=== PATIENT | male | born 1955 | race Caucasian/White ===

== ENCOUNTER 2024-10-07 15:13 | Inpatient (IN) ==
--- NOTE | 2024-10-07 15:22 | ED Triage Note ---
Date of Service October 07, 2024 Provider in Triage Author: Catrachito Cardozo History of Present Illness This patient was briefly evaluated while in triage. An abbreviated physical exam was performed. This patient is a 69-year-old Male who presents to the ED for evaluation coming from [facility]-had colonoscopy earlier today became hypoxic after procedure - given nebulizers, decadron, metoprolol sats down to 86% had COVID at the end of August feeling better, still mildly SOB, having cough and "frog in his throat" Physical Exam GENERAL: NAD, tachycardic in 120s, sat 91% on RA CARDIOVASCULAR: RRR RESPIRATORY: BS diminished and crackles at the left base ABDOMEN: BS x 4. Nontender to palpation. Initial orders for labs and / or imaging were placed and patient was placed in the waiting area until a bed is available. Please see further documentation for the full ED course. MDM / Impression Impression Impression: Sepsis, LLL pneumonia, Elevated lactic acid level
[2024-10-07 16:07] LABS: Hematocrit (blood only) 41.3 % (42.0-52.0); Hemoglobin 14.1 g/dl (14.0-18.0); Mean Corpuscular Hemoglobin 31.2 pg (25.0-34.0); Mean Corpuscular Hgb Conc 34.1 g/dL (32.0-36.0); Mean Corpuscular Volume 91.4 fL (80.0-100.0); Mean Platelet Volume 8.8 fL (9.4-12.4); Platelet Count 302 K/uL (130-400); RDW Coefficient of Variation 12.8 % (11.5-14.5); RDW Standard Deviation 42.2 fL (36.4-46.3); Red Blood Count 4.52 M/uL (4.70-6.10); White Blood Count 14.29 K/ul (4.8-10.8)
[2024-10-07 16:18] LABS: Albumin Globulin Ratio 1.2 (0.9-2); Albumin Level 4.2 gm/dl (3.4-5.0); BUN Creatinine Ratio 9.6 (10-20); Bilirubin,Total 0.8 mg/dl (0.2-1.0); Calcium 9.1 mg/dl (8.6-10.3); Creatinine Clr Calc Pharmacy 83.1 ml/min; Globulin 3.4 gm/dl (2.5-4.0); Potassium 4.1 mmol/L (3.5-5.1); Total Protein 7.6 gm/dl (6.0-8.3)
[2024-10-07 16:24] LABS: Troponin I High Sensitivity 7.2 pg/ml (0-20)
[2024-10-07 16:32] LABS: Basophils # (auto) 0.03 K/uL (0.00-0.20); Basophils % (auto) 0.2 %; Immature Granulocytes # (auto) 0.05 K/uL (0.01-0.20); Immature Granulocytes % (auto) 0.3 %; Lymphocytes # (auto) 0.47 K/uL (1.20-3.40); Lymphocytes % (auto) 3.3 %; Monocytes # (auto) 0.46 K/uL (0.11-0.59); Monocytes % (auto) 3.2 %; Neutrophils # (auto) 13.28 K/uL (1.40-6.50)
--- NOTE | 2024-10-07 16:42 | Emergency Department Note ---
Impression & Plan Sepsis, LLL pneumonia, Elevated lactic acid level ED Provider Note HISTORY OF PRESENT ILLNESS: Patient is a 69-year-old male presenting with hypoxia. Patient reports that today he had some nasal congestion but was scheduled for colonoscopy. He reportedly became hypoxic during the procedure and was given Solu-Medrol and DuoNeb by anesthesia but had little improvement in his saturations. Saturations were reportedly in the 80s to low 90s. He was referred to the emergency department for further evaluation. Patient reports he tested positive for COVID on 09/16/2024. He reports he completed a course of Paxlovid. He states that he been doing well and had been on a walk this weekend. He woke up and just had some nasal congestion today. No significant cough. Denies any recent antibiotic or steroid use. Denies any recent fevers. ROS: as above PHYSICAL EXAM: Constitutional: Patient appears in no acute distress. HENT: Head: Normocephalic and atraumatic. Eyes: EOMI, PERRL Mouth/Throat: Mucous membranes moist. Neck: Trachea midline. Neck supple. Cardiovascular: Tachycardic with regular rhythm. No murmurs, rubs or gallops. Intact distal pulses. Pulmonary/Chest: No respiratory distress. Breath sounds clear and equal bilaterally. No wheezes or rales. No chest wall tenderness to palpation. Abdominal: Abdomen soft, no tenderness, rebound or guarding. Musculoskeletal: No edema, tenderness or deformity noted. Skin: Warm and dry. No rash, erythema, pallor or cyanosis Psychiatric: Appropriate mood and affect for situation. Neurological: Alert and keenly responsive. CN II-XII grossly intact, moving all extremities equally and fully. MDM: - Vitals signs showed hypertension and tachycardia - History obtained via patient. History as above. - Chronic conditions affecting care: HTN; HLD - Differential diagnoses include, but are not limited to: Congestive heart failure; acute coronary syndrome; COPD/asthma exacerbation; pulmonary edema; pulmonary embolism; pneumonia; pneumothorax; viral syndrome - Order placed for continuous cardiac monitoring. At this time, monitor showed rate of 126 bpm with normal sinus rhythm, per my interpretation. - External medical records reviewed. Colonoscopy preprocedure note dated 10/07/2024 was reviewed. Patient was afebrile and had a heart rate of 100 prior to undergoing his colonoscopy. Blood pressure was stable at 139/94. - EKG interpreted by myself showed normal sinus rhythm. Rate tachycardic at 123 bpm. QT 308. No acute ischemic changes. - Laboratory workup interpreted by myself showed leukocytosis (WBC 14.29) with neutrophil predominance; stable electrolytes; elevated lactate (4.0); normal troponin; normal procalcitonin - CXR shows left lower lobe pneumonia, per my interpretation - Given patient's tachycardia, tachypnea, leukocytosis and source of infection, he meets sepsis criteria. - Patient given IV unasyn. Given 500 cc NS for hydration given sepsis. More fluids not ordered due to national shortage. - CT PE negative for PE. Noted to have patchy groundglass opacities in the left lung concerning for pneumonia or inflammatory changes. - Viral respiratory panel negative - Discussion was had with case management director about patient's case and need for admission - Hospitalist consulted for admission - [facility] ASSESSMENT AND PLAN: Diagnosis: pneumonia; sepsis; leukocytosis; elevated lactic acid level Plan: admit Past Med/Surg History Problem List (Updated 10/07/24 @ 18:41 by Gabriela Hull MD) Elevated lactic acid level (Acute) LLL pneumonia (Acute) Sepsis (Acute) LLL pneumonia Sepsis Medical History (Updated 10/07/24 @ 18:41 by Gabriela Hull MD) Diastolic dysfunction DM (diabetes mellitus), type 2 Dyslipidemia Chronic rhinitis Hypertension Tobacco use disorder History of adenomatous polyp of colon Diverticular disease of colon Chronic low back pain Surgical History H/O colonoscopy "01/20/2014- Bx- Diverticulosis, Bx's- Colonic mucosa with hyperplastic change, Hyperplastic polyp" S/P wisdom tooth extraction History of cholecystectomy (Unknown) Family History Other Gastric cancer Heart disease Social History (Updated 10/07/24 @ 18:30 by Nia Guerra PA-C) Smoking Status: Former smoker Tobacco Type: Cigarettes Cigarettes Per Day: 2014; 20 pack years; Smoking End Date: 2014; 20 pack years; Hx Alcohol Use: Yes Preferred Language: Belarusian Feels Safe at Home: Yes Allergies Allergies Allergy/AdvReac Type Severity Reaction Status Date / Time ciprofloxacin AdvReac Muscle Pain Verified 10/07/24 17:05 Home Meds Home Medications Medication Instructions Recorded Confirmed aspirin 81 mg capsule 81 mg PO DAILY 10/07/24 10/07/24 famotidine 20 mg tablet 20 mg PO HS PRN Heartburn 10/07/24 10/07/24 geriatric multivitamin-min 1 tab PO DAILY 10/07/24 10/07/24 metformin 500 mg tablet,extended 500 mg PO BID 10/07/24 10/07/24 release 24 hr metoprolol succinate 50 mg 50 mg PO QAM 10/07/24 10/07/24 tablet,extended release 24 hr rosuvastatin 10 mg tablet 10 mg PO DAILY 10/07/24 10/07/24 Results & Data (ED) Vital Signs Vital Signs - 24 hr 10/07/24 15:20 10/07/24 16:39 10/07/24 17:03 Temperature 36.7 C Temperature Source Temporal Artery Scan Pulse Rate 120 H 126 H Pulse Rate [Finger] 126 H Pulse Rhythm Regular Pulse Strength Normal Respiratory Rate 20 22 Respiratory Effort / Characteristics Non-Labored Spontaneous Respiratory Depth Normal Blood Pressure 150/95 H Blood Pressure [Right Arm] 154/98 H Blood Pressure Mean 113 Blood Pressure Mean [Right Arm] 116 Blood Pressure Position Sitting Pulse Oximetry 91 94 Oxygen Delivery Method Room Air Room Air Sepsis Recent Fever Within 48 Hours No Sepsis New/Unexplained Change in Mental Status N/A Sepsis Action Taken by Nursing No Action Required 10/07/24 18:30 Temperature Temperature Source Pulse Rate Pulse Rate [Finger] 119 H Pulse Rhythm Pulse Strength Respiratory Rate 22 Respiratory Effort / Characteristics Respiratory Depth Blood Pressure Blood Pressure [Right Arm] 137/95 Blood Pressure Mean Blood Pressure Mean [Right Arm] 109 Blood Pressure Position Pulse Oximetry 93 Oxygen Delivery Method Room Air Sepsis Recent Fever Within 48 Hours Sepsis New/Unexplained Change in Mental Status Sepsis Action Taken by Nursing Laboratory Data 10/07/24 15:46 10/07/24 15:46 Lab Results 10/07/24 10/07/24 10/07/24 Range/Units 15:46 17:07 17:26 WBC 14.29 H (4.8-10.8) K/ul RBC 4.52 L (4.70-6.10) M/uL Hgb 14.1 (14.0-18.0) g/dl Hct 41.3 L (42.0-52.0) % MCV 91.4 (80.0-100.0) fL MCH 31.2 (25.0-34.0) pg MCHC 34.1 (32.0-36.0) g/dL RDW Std Deviation 42.2 (36.4-46.3) fL RDW Coeff of August 12.8 (11.5-14.5) % Plt Count 302 (130-400) K/uL MPV 8.8 L (9.4-12.4) fL Immature Gran % (Auto) 0.3 % Neut % (Auto) 93.0 % Lymph % (Auto) 3.3 % Smith % (Auto) 3.2 % Eos % (Auto) 0.0 % Baso % (Auto) 0.2 % Neut # (Auto) 13.28 H (1.40-6.50) K/uL Lymph # (Auto) 0.47 L (1.20-3.40) K/uL Smith # (Auto) 0.46 (0.11-0.59) K/uL Eos # (Auto) 0.00 (0.00-0.50) K/uL Baso # (Auto) 0.03 (0.00-0.20) K/uL Immature Gran # (Auto) 0.05 (0.01-0.20) K/uL Sodium 135 L (136-145) mmol/L Potassium 4.1 (3.5-5.1) mmol/L Chloride 101 (98-107) mmol/L Carbon Dioxide 23 (21-32) mmol/L Anion Gap 11 (3-11) BUN 9 (6-23) mg/dl Creatinine 0.94 (0.6-1.4) mg/dl Est Cr Clr Drug Dosing 83.1 ml/min eGFR 88.30 BUN/Creatinine Ratio 9.6 L (10-20) Glucose 170 H (70-99(Fasting)) mg/dl Lactate 4.0 H* (0.4-2.0) mmol/L Calcium 9.1 (8.6-10.3) mg/dl Total Bilirubin 0.8 (0.2-1.0) mg/dl AST 26 (13-39) U/L ALT 22 (7-52) U/L Alkaline Phosphatase 58 (34-104) U/L Troponin I High Sens 7.2 (0-20) pg/ml Total Protein 7.6 (6.0-8.3) gm/dl Albumin 4.2 (3.4-5.0) gm/dl Globulin 3.4 (2.5-4.0) gm/dl Albumin/Globulin Ratio 1.2 (0.9-2) Procalcitonin 0.14 (0-0.5) ng/ml Urine Color Yellow Urine Appearance Clear (Clear) Urine pH 6.5 (4.5-7.5) Ur Specific [place] > 1.045 H (1.000-1.030) Urine Protein Negative (Negative) Urine Glucose (UA) Negative (Negative) Urine Ketones Negative (Negative) Urine Blood Negative (Negative) Urine Nitrite Negative (Negative) Urine Bilirubin Negative (Negative) Urine Urobilinogen Negative (Negative) Ur Leukocyte Esterase Negative (Negative) Adenovirus (PCR) Not Detected (NotDetected) B. pertussis DNA (PCR) Not Detected (NotDetected) B.parapertussis DNA PCR Not Detected (NotDetected) C. pneumoniae DNA (PCR) Not Detected (NotDetected) Coronavirus OC43 (PCR) Not Detected (NotDetected) Coronavirus HKU1 (PCR) Not Detected (NotDetected) Coronavirus 229E (PCR) Not Detected (NotDetected) SARS-CoV-2 (PCR) Not Detected (NotDetected) Coronavirus NL63 (PCR) Not Detected (NotDetected) Human Metapneumovir PCR Not Detected (NotDetected) Influenza Type A (PCR) Not Detected (NotDetected) Influenza Type B (PCR) Not Detected (NotDetected) M. pneumoniae (PCR) Not Detected (NotDetected) Parainfluenza 1 (PCR) Not Detected (NotDetected) Parainfluenza 2 (PCR) Not Detected (NotDetected) Parainfluenza 3 (PCR) Not Detected (NotDetected) Parainfluenza 4 (PCR) Not Detected (NotDetected) RSV (PCR) Not Detected (NotDetected) Entero/Rhino (PCR) Not Detected (NotDetected) Administered Medications Discontinued Medications Ampicillin Sodium/Sulbactam Sodium (Unasyn) 3,000 mg in 100 mls @ 200 mls/hr IV NOW STA Stop: 10/07/24 17:30 Last Infusion: 10/07/24 18:36 Dose: Infused Documented By: Admin: 10/07/24 18:06 Dose: 200 mls/hr Documented By: TRINITY Sodium Chloride (Nss) 500 mls @ 999 mls/hr IV .Q31M ONE Stop: 10/07/24 18:08 Last Infusion: 10/07/24 18:39 Dose: Infused Documented By: Admin: 10/07/24 18:07 Dose: 999 mls/hr Documented By: TRINITY Ioversol (Optiray 320 125ml) 116 ml IV ONCE ONE Stop: 10/07/24 16:55 Last Admin: 10/07/24 16:54 Dose: 116 ml Documented By: JOSE ALEJANDRO Imaging Data Radiologist's Impression: Chest X-Ray 10/07/24 15:22 INDICATION: Cough. TECHNIQUE: Frontal and lateral radiographs of the chest. COMPARISON: Radiograph from 11/09/2022. FINDINGS: Mild cardiomegaly. Mild pulmonary vascular congestion. Left upper/lower lobe infiltrates. No pleural effusion or pneumothorax. No acute osseous abnormality evident. IMPRESSION: 1. Mild pulmonary vascular congestion. 2. Findings concerning for left upper/lower lobe pneumonia. Electronically signed by Miquel Akers 10-07-2024 4:47 PM Chest CTA 10/07/24 16:31 EXAM: CT angio chest PE protocol CLINICAL HISTORY: pe 116ml of 320 TECHNIQUE: Contiguous 3.[address] angiographic images of the chest were acquired with the administration of intravenous contrast. Coronal and sagittal reconstructions were obtained. 116 ml of intravenous contrast was administered for post-contrast images. One of these 3D techniques was utilized: Maximum Intensity Pixel (MIP), 3D Reconstructed Images, Volume Rendered Images, Surface Shaded Rendering. One of the following dose reduction techniques was utilized for this exam: Automated exposure control, adjustment of the mA and/or kV according to patient size, and use of iterative reconstruction. COMPARISON: 10/07/2024 15:39:00 SPEECH THERAPY DIRECTOR was reviewed. FINDINGS: Aorta: The thoracic aorta is normal in caliber. No evidence of aneurysm, dissection, or significant atherosclerotic changes. The aortic arch and descending thoracic aorta are unremarkable. Pulmonary Arteries: Pulmonary arteries are normal in size and opacification. No evidence of pulmonary embolism. No stenosis or filling defects. Superior Vena Cava (SVC) and Inferior Vena Cava (IVC): Normal opacification and caliber. No evidence of thrombus or obstruction. Mediastinum: No mediastinal mass or lymphadenopathy. Normal appearance of the thymus. Heart: Normal size and morphology of the heart. No pericardial effusion. Lungs: Evident patchy groundglass opacities in left lung predominantly in left lower lobe with interspersed multifocal centrilobular nodules. Bones: No fractures or lytic/sclerotic lesions of the visualized bony structures. Normal alignment and bone density. Soft Tissues: There appears to be left gynecomastia. Additional findings: Small sliding hiatal hernia IMPRESSION: 1. Normal CT angiography of the chest. 2. No evidence of significant vascular abnormalities. 3. Evident patchy groundglass opacities in left lung predominantly in left lower lobe with interspersed multifocal centrilobular nodules and suggestion of tree in bud appearance in left lingular segment. Possibilities include post-inflammatory versus infective etiology. Clinical correlation is suggested Electronically signed by Marina Woody 10-07-2024 6:29 PM Discharge Plan Visit Data Chief Complaint: Referred by Doctor Stated Complaint: COLONOSOPY, PULSE OX, CHEST XRAY ED Provider: Gabriela Hull Discharge Problem: Sepsis, LLL pneumonia, Elevated lactic acid level Forms Stand Alone Forms: My [facility] Prescriptions Prescriptions: No Action metoprolol succinate 50 mg tablet extended release 24 hr 50 mg PO QAM famotidine 20 mg tablet 20 mg PO HS PRN (Reason: Heartburn) metformin 500 mg tablet extended release 24 hr 500 mg PO BID rosuvastatin 10 mg tablet 10 mg PO DAILY One-A-Day 50 Plus Tablet 1 tab PO DAILY aspirin 81 mg Capsule 81 mg PO DAILY Referrals Referrals: Guillaume Clark MD [Primary Care Provider] -
--- NOTE | 2024-10-07 16:47 | XRay Report ---
INDICATION: Cough. TECHNIQUE: Frontal and lateral radiographs of the chest. COMPARISON: Radiograph from 11/09/2022. FINDINGS: Mild cardiomegaly. Mild pulmonary vascular congestion. Left upper/lower lobe infiltrates. No pleural effusion or pneumothorax. No acute osseous abnormality evident. IMPRESSION: 1. Mild pulmonary vascular congestion. 2. Findings concerning for left upper/lower lobe pneumonia. Electronically signed by Miquel Akers 10-07-2024 4:47 PM
[2024-10-07] MEDS: OPTIRAY 320 125ml IV ONE (16:54)
[2024-10-07 17:42] LABS: Appearance Urine Clear (Clear); Bilirubin Urine Negative (Negative); Blood Urine Negative (Negative); Color Urine Yellow; Glucose Urine UA Negative (Negative); Ketones Urine Negative (Negative); Leukocyte Esterase Urine Negative (Negative); Nitrite Urine Negative (Negative); Protein Urine Negative (Negative); Specific Gravity Urine > 1.045 (1.000-1.030); Urobilinogen Urine Negative (Negative); pH Urine 6.5 (4.5-7.5)
[2024-10-07] MEDS: AMPICILLIN/SULBACTAM SOD 3,000 MG/100 ML BAG IV STA (18:06)
[2024-10-07] MEDS: SODIUM CHLORIDE 0.9% 500 ML IV ONE (18:07)
--- NOTE | 2024-10-07 18:13 | History & Physical Report ---
Date of Service October 07, 2024 Assessment & Plan (1) Sepsis: (2) LLL pneumonia: (3) DM (diabetes mellitus), type 2: (4) Dyslipidemia: (5) Diastolic dysfunction: Plan This is a 69-year-old male with PMH of type 2 diabetes, hypertension, diastolic dysfunction, GERD, history of tobacco use and other medical problems listed below who was sent over from his colonoscopy due to hypoxia and was found to have LLL pneumonia meeting sepsis criteria. HR 120, WBC 14K, lactate 4.0 -> 4.8 with evident patchy groundglass opacities in left lung, predominantly lower suggestive of infective etiology meeting severe sepsis criteria Procalcitonin 0.14, resp viral panel negative Appears non-toxic, afebrile, intermittent productive cough Rocephin, azithrymycin for now Added mucinex, PRN Duonebs Lactic acidosis Adding gentle fluids given lactic acidosis as above, repeat lactate ordered ? metformin contributing - will hold DM II A1c 6.5 in May 2024, repeat in AM Hold home agents SSI while in-patient BSG AC HS HTN Continue Toprol DVT Ppx: SQ lovenox Code status: FULL PCP: Eduardo Dispo: Admitted to [facility] tele Patient seen in collaboration with Dr. Rain. Please see addendum. I spent a total of 75 minutes coordinating, documenting, and providing care for this patient excluding time spent in the performance of separately billed services. History of Present Illness Chief Complaint: Hypoxic episode Primary Care Provider: Guillaume Clark MD This is a 69-year-old male with PMH of type 2 diabetes, hypertension, diastolic dysfunction, GERD, history of tobacco use and other medical problems listed below who was sent over from his colonoscopy due to hypoxia. Patient tested positive for COVID Sep 17 and completed Paxlovid course and was feeling better until today when he felt congested and was coughing more. No F/C, lightheadedness, CP today. Did receive 4mg decadron and albuterol nebs from anesthesia due to hypoxia which has since resolved. Former smoker but quit in 2014. Was undergoing colonoscopy today in follow up of mild diverticulitis episode over the summer, h/o polyps. Allergies Allergy/AdvReac Type Severity Reaction Status Date / Time ciprofloxacin AdvReac Muscle Pain Verified 10/07/24 17:05 Home Medications Medication Instructions Recorded Confirmed Type aspirin 81 mg capsule 81 mg PO DAILY 10/07/24 10/07/24 History famotidine 20 mg tablet 20 mg PO HS PRN Heartburn 10/07/24 10/07/24 History geriatric multivitamin-min 1 tab PO DAILY 10/07/24 10/07/24 History metformin 500 mg tablet,extended 500 mg PO BID 10/07/24 10/07/24 History release 24 hr metoprolol succinate 50 mg 50 mg PO QAM 10/07/24 10/07/24 History tablet,extended release 24 hr rosuvastatin 10 mg tablet 10 mg PO DAILY 10/07/24 10/07/24 History Past Med/Surg History Problem List Elevated lactic acid level (Acute) LLL pneumonia (Acute) Sepsis (Acute) LLL pneumonia Sepsis Medical History Diastolic dysfunction DM (diabetes mellitus), type 2 Dyslipidemia Chronic rhinitis Hypertension Tobacco use disorder History of adenomatous polyp of colon Diverticular disease of colon Chronic low back pain Surgical History H/O colonoscopy "01/20/2014- Bx- Diverticulosis, Bx's- Colonic mucosa with hyperplastic change, Hyperplastic polyp" S/P wisdom tooth extraction History of cholecystectomy (Unknown) Family History Other Gastric cancer Heart disease Social History Smoking Status: Former smoker Tobacco Type: Cigarettes Cigarettes Per Day: 2014; 20 pack years; Smoking End Date: 20 pack years; Hx Alcohol Use: Yes Preferred Language: Occitan Feels Safe at Home: Yes Review of Systems Review of Systems: At least ten systems reviewed and negative except as noted in the HPI. Physical Exam Physical Exam: General Appearance: WD/WN, vitals as above, NAD, sitting up in bed, conversing easily, obese Head: normocephalic, atraumatic Eyes: normal inspection, PERRL, conjunctivae normal, anicteric sclerae ENT: external ear and nose normal, oropharynx normal Neck: normal visual inspection, trachea midline, no thyromegaly Respiratory: normal respiratory effort, Left base with rhonchi, expiratory wheezing, crackles. R base clear. No accessory muscle use Cardiovascular: tachycardic rate, regular rhythm, normal peripheral pulses, no BLE edema. Vessels: no JVD Chest: normal inspection of chest Abdomen/GI: normal bowel sounds, soft, nontender, no hepatosplenomegaly Extremities/Musculoskeletal: no cyanosis or clubbing, extremities motor strength 5/5 Neurologic: PERRL, EOMI, accommodation nl, no face palsy, no dysarthria, CN's II-XI intact bilaterally and moves all extremities Psychiatric: A+Ox3, euthymic affect Skin: no rashes, normal color, warm/dry Results & Data Results & Data Vital Signs (Past 12 Hours) Vital Signs Temp Pulse Pulse Resp BP BP Pulse Ox 10/07/24 17:03 126 H 22 154/98 H 94 10/07/24 16:39 126 H 10/07/24 15:20 36.7 C 120 H 20 150/95 H 91 O2 Del Method 10/07/24 17:03 Room Air 10/07/24 16:39 10/07/24 15:20 Room Air Laboratory Results Short CBC 10/07/24 Range/Units 15:46 WBC 14.29 H (4.8-10.8) K/ul Hgb 14.1 (14.0-18.0) g/dl Hct 41.3 L (42.0-52.0) % Plt Count 302 (130-400) K/uL BMP 10/07/24 15:46 Sodium 135 L Potassium 4.1 Chloride 101 Carbon Dioxide 23 BUN 9 Creatinine 0.94 Glucose 170 H Calcium 9.1 Liver Function 10/07/24 Range/Units 15:46 Total Bilirubin 0.8 (0.2-1.0) mg/dl AST 26 (13-39) U/L ALT 22 (7-52) U/L Alkaline Phosphatase 58 (34-104) U/L Albumin 4.2 (3.4-5.0) gm/dl Urine 10/07/24 Range/Units 17:26 Urine Color Yellow Urine Appearance Clear (Clear) Urine pH 6.5 (4.5-7.5) Ur Specific Hart > 1.045 H (1.000-1.030) Urine Protein Negative (Negative) Urine Glucose (UA) Negative (Negative) Diagnostic Findings Chest X-Ray 10/07/24 15:22 INDICATION: Cough. TECHNIQUE: Frontal and lateral radiographs of the chest. COMPARISON: Radiograph from 11/09/2022. FINDINGS: Mild cardiomegaly. Mild pulmonary vascular congestion. Left upper/lower lobe infiltrates. No pleural effusion or pneumothorax. No acute osseous abnormality evident. IMPRESSION: 1. Mild pulmonary vascular congestion. 2. Findings concerning for left upper/lower lobe pneumonia. Electronically signed by Miquel Akers 10-07-2024 4:47 PM Chest CTA 10/07/24 16:31 EXAM: CT angio chest PE protocol CLINICAL HISTORY: pe 116ml of 320 TECHNIQUE: Contiguous 3.[address] angiographic images of the chest were acquired with the administration of intravenous contrast. Coronal and sagittal reconstructions were obtained. 116 ml of intravenous contrast was administered for post-contrast images. One of these 3D techniques was utilized: Maximum Intensity Pixel (MIP), 3D Reconstructed Images, Volume Rendered Images, Surface Shaded Rendering. One of the following dose reduction techniques was utilized for this exam: Automated exposure control, adjustment of the mA and/or kV according to patient size, and use of iterative reconstruction. COMPARISON: 10/07/2024 15:39:00 EXERCISE RIDER was reviewed. FINDINGS: Aorta: The thoracic aorta is normal in caliber. No evidence of aneurysm, dissection, or significant atherosclerotic changes. The aortic arch and descending thoracic aorta are unremarkable. Pulmonary Arteries: Pulmonary arteries are normal in size and opacification. No evidence of pulmonary embolism. No stenosis or filling defects. Superior Vena Cava (SVC) and Inferior Vena Cava (IVC): Normal opacification and caliber. No evidence of thrombus or obstruction. Mediastinum: No mediastinal mass or lymphadenopathy. Normal appearance of the thymus. Heart: Normal size and morphology of the heart. No pericardial effusion. Lungs: Evident patchy groundglass opacities in left lung predominantly in left lower lobe with interspersed multifocal centrilobular nodules. Bones: No fractures or lytic/sclerotic lesions of the visualized bony structures. Normal alignment and bone density. Soft Tissues: There appears to be left gynecomastia. Additional findings: Small sliding hiatal hernia IMPRESSION: 1. Normal CT angiography of the chest. 2. No evidence of significant vascular abnormalities. 3. Evident patchy groundglass opacities in left lung predominantly in left lower lobe with interspersed multifocal centrilobular nodules and suggestion of tree in bud appearance in left lingular segment. Possibilities include post-inflammatory versus infective etiology. Clinical correlation is suggested Electronically signed by Marina Woody 10-07-2024 6:29 PM Supervising Physician Co-Signing Physician Notes 69-year-old man with PMH of T2DM, HTN, tobacco abuse presented to the ED after colonoscopy today due to shortness of breath/hypoxia/cough/tachycardia. Admitting imaging suggestive of left-sided pneumonia. Lactate was elevated. WBC elevated. Pneumonia/ severe sepsis POA: Will continue with azithromycin and Rocephin, add probiotic, continue IV fluid at 60 mL an hour for 1 L fluid. Trend lactate.Repeat chest imaging in about 6 weeks time to document resolution of pneumonia. Obtain sputum culture. On exam: GENERAL: Alert and oriented x3. NAD, on RA. HEENT: No pallor, no icterus. Pupils equal, round and reactive to light. Oral mucosa moist. NECK: No JVD, no neck masses. HEART: S1 and S2 heard. Regular rate and rhythm. No murmur, no gallop. RESPIRATORY SYSTEM: Normal AP diameter. No accessory muscle use. No wheezing, Lt sided crackles. ABDOMEN: Soft, bowel sounds present, nontender, no distention. CENTRAL NERVOUS SYSTEM: No facial droop. Speech is clear. Obeys simple commands. Moves extremities. EXTREMITIES: No edema, no erythema seen. I have seen and examined the patient and have discussed the case with the provider above. I agree with the assessment and plan as stated. Time spent: 30 min.
[2024-10-07 18:30] LABS: Adenovirus PCR Not Detected (NotDetected); Bordetella parapertussis PCR Not Detected (NotDetected); Bordetella pertussis PCR Not Detected (NotDetected); Chlamydia pneumoniae PCR Not Detected (NotDetected); Coronavirus 229E PCR Not Detected (NotDetected); Coronavirus CoV-2 (COVID19)PCR Not Detected (NotDetected); Coronavirus HKU1 PCR Not Detected (NotDetected); Coronavirus NL63 PCR Not Detected (NotDetected); Coronavirus OC43PCR Not Detected (NotDetected); Human Metapneumovirus PCR Not Detected (NotDetected); Influenza A PCR Not Detected (NotDetected); Influenza B PCR Not Detected (NotDetected); Mycoplasma pneumoniae PCR Not Detected (NotDetected); Parainfluenza Virus 1 PCR Not Detected (NotDetected); Parainfluenza Virus 2 PCR Not Detected (NotDetected); Parainfluenza Virus 3 PCR Not Detected (NotDetected); Parainfluenza Virus 4 PCR Not Detected (NotDetected); Respiratory Syncytial VirusPCR Not Detected (NotDetected); Rhinovirus/Enterovirus PCR Not Detected (NotDetected)
--- NOTE | 2024-10-07 18:30 | CT Scan Report ---
EXAM: CT angio chest PE protocol CLINICAL HISTORY: pe 116ml of 320 TECHNIQUE: Contiguous 3.[address] angiographic images of the chest were acquired with the administration of intravenous contrast. Coronal and sagittal reconstructions were obtained. 116 ml of intravenous contrast was administered for post-contrast images. One of these 3D techniques was utilized: Maximum Intensity Pixel (MIP), 3D Reconstructed Images, Volume Rendered Images, Surface Shaded Rendering. One of the following dose reduction techniques was utilized for this exam: Automated exposure control, adjustment of the mA and/or kV according to patient size, and use of iterative reconstruction. COMPARISON: 10/07/2024 15:39:00 PSYCHIATRIC TECHNICIAN was reviewed. FINDINGS: Aorta: The thoracic aorta is normal in caliber. No evidence of aneurysm, dissection, or significant atherosclerotic changes. The aortic arch and descending thoracic aorta are unremarkable. Pulmonary Arteries: Pulmonary arteries are normal in size and opacification. No evidence of pulmonary embolism. No stenosis or filling defects. Superior Vena Cava (SVC) and Inferior Vena Cava (IVC): Normal opacification and caliber. No evidence of thrombus or obstruction. Mediastinum: No mediastinal mass or lymphadenopathy. Normal appearance of the thymus. Heart: Normal size and morphology of the heart. No pericardial effusion. Lungs: Evident patchy groundglass opacities in left lung predominantly in left lower lobe with interspersed multifocal centrilobular nodules. Bones: No fractures or lytic/sclerotic lesions of the visualized bony structures. Normal alignment and bone density. Soft Tissues: There appears to be left gynecomastia. Additional findings: Small sliding hiatal hernia IMPRESSION: 1. Normal CT angiography of the chest. 2. No evidence of significant vascular abnormalities. 3. Evident patchy groundglass opacities in left lung predominantly in left lower lobe with interspersed multifocal centrilobular nodules and suggestion of tree in bud appearance in left lingular segment. Possibilities include post-inflammatory versus infective etiology. Clinical correlation is suggested Electronically signed by Marina Woody 10-07-2024 6:29 PM
[2024-10-07] MEDS: cefTRIAXone SODIUM 2,000 MG in DEXTROSE 5% 50 ML IV SCH (19:25)
[2024-10-07] MEDS: AZITHROMYCIN 500 MG in DEXTROSE 5% 250 ML IV SCH (20:12)
[2024-10-07] MEDS ORDERED: GLUCOSE 40% GEL 15 GM TUBE PO PRN (21:20)
[2024-10-07] MEDS ORDERED: ONDANSETRON INJ 2 MG/ML 2 ML VIAL IV PRN (21:20)
[2024-10-07] MEDS ORDERED: GLUCOSE 10 TAB/TUBE PO PRN (21:20)
[2024-10-07] MEDS ORDERED: POLYETHYLENE (MIRALAX) 17 GM PACK PO PRN (21:20)
[2024-10-07] MEDS ORDERED: DEXTROSE 50% 50 ML SYRINGE IV PRN (21:20)
[2024-10-07] MEDS ORDERED: ALBUT/IPRATROP 3MG/0.5MG NEB 3 ML VIAL NEB PRN (21:20)
[2024-10-07] MEDS ORDERED: CARBOHYDRATES FOR HYPOGLYCEMIA PO PRN (21:20)
[2024-10-07] MEDS ORDERED: GLUCAGON FOR INJ 1 MG VIAL SQ PRN (21:20)
[2024-10-07] MEDS ORDERED: FAMOTIDINE 20 MG TAB PO PRN (21:20)
[2024-10-07] MEDS: guaiFENesin 600 MG TABCR PO SCH (21:42)
[2024-10-07] MEDS: INSULIN ASPART PER UNIT CHARGE SC SCH (22:03)
[2024-10-07] MEDS: ENOXAPARIN INJ 40 MG/0.4 ML SYR SQ SCH (22:04)
[2024-10-07] MEDS: SODIUM CHLORIDE 0.9% 1,000 ML IV SCH (22:05)
--- NOTE | 2024-10-08 00:44 | Communication Note ---
Date of Service: October 08, 2024 Patient still tachycardic with persistent lactic acidosis 3s. AP Severe sepsis Healthcare associated pneumonia Recent colonoscopy Change ceftriaxone to Zosyn Continue azithromycin
[2024-10-08 01:04] LABS: Magnesium 1.6 mg/dl (1.7-2.4)
[2024-10-08] MEDS: PIPERACILLIN/TAZOBACTAM 4.5 GM/100 ML BAG IV STA (01:12)
[2024-10-08] MEDS: ALBUMIN 25% 25 GM/100 ML VIAL IV SCH (02:06)
[2024-10-08 04:36] LABS: Hematocrit (blood only) 34.4 % (42.0-52.0); Hemoglobin 11.8 g/dl (14.0-18.0); Mean Corpuscular Hemoglobin 31.1 pg (25.0-34.0); Mean Corpuscular Hgb Conc 34.3 g/dL (32.0-36.0); Mean Corpuscular Volume 90.5 fL (80.0-100.0); Mean Platelet Volume 8.8 fL (9.4-12.4); Platelet Count 223 K/uL (130-400); RDW Coefficient of Variation 13.1 % (11.5-14.5); RDW Standard Deviation 42.8 fL (36.4-46.3)
[2024-10-08 04:51] LABS: BUN Creatinine Ratio 12.1 (10-20); Calcium 8.8 mg/dl (8.6-10.3)
[2024-10-08] MEDS: PIPERACILLIN/TAZOBACTAM 4.5 GM/100 ML BAG IV SCH (06:02)
[2024-10-08 07:03] LABS: Estimated Average Glucose 163 mg/dl; Hemoglobin A1C 7.3 % (4.5-5.6)
[2024-10-08] MEDS ORDERED: PHARMACY GLYCEMIC MGMT CONSULT PRN (07:57)
[2024-10-08] MEDS: METOPROLOL SUCC 50MG EXT REL TAB PO SCH (08:15)
[2024-10-08] MEDS: CEROVITE ADV FORMULA TAB PO SCH (08:15)
[2024-10-08] MEDS: ASPIRIN 81 MG ECTAB PO SCH (08:16)
[2024-10-08] MEDS: ROSUVASTATIN CALCIUM 10 MG TAB PO SCH ×2 (09:30→20:49)
[2024-10-08] MEDS: ADVANCED PROBIOTIC 625 MG CAPSULE PO SCH (10:53)
[2024-10-08] MEDS: FAMOTIDINE 20 MG TAB PO SCH (11:03)
[2024-10-08] MEDS: ALBUT/IPRATROP 3MG/0.5MG NEB 3 ML VIAL NEB SCH (11:15)
[2024-10-08] MEDS: SODIUM CHLOR 7% 4 ML NEB NEB SCH (11:15)
--- NOTE | 2024-10-08 11:36 | Hospitalist Progress Note ---
Date of Service October 08, 2024 Assessment & Plan (1) Severe sepsis: (2) LLL pneumonia: Plan Sami Fields is a 69y/o M with PMHx with DM type II, dyslipidemia, HTN, diastolic dysfunction, GERD with esophagitis, diverticulosis, fatty liver, and sensorineural hearing loss of right ear, right ear tinnitus, corneal dystrophy, history of tobacco use [quit in 2014] and history of hepatitis B who presented to the ED for on 10/07/2024 after he was noted to be hypoxic on RA during an outpatient colonoscopy. Patient reports that he tested positive for COVID last month on the and completed a course of Paxlovid however he has been dealing with a persistent cough since then. He was getting a colonoscopy done yesterday at the [facility] in [place] when he was noted to be hypoxic on room air with an O2 saturation in the mid 80s to low 90s. He was subsequently referred to the ED for further evaluation after receiving IV Solu- Medrol and a Duoneb treatment without significant improvement in his oxygen saturation. He was subsequently found to have LLL pneumonia and met severe sepsis criteria (WBC>12k, HR>90, source of infection, lactic acidosis) on admission. Severe Sepsis, Pneumonia: Met severe sepsis criteria on admission 2/2 WBC>12k, HR>90, source of infection + lactic acidosis. Additional ED work-up including procalcitonin, UA, Biofire and MRSA nasal swab were all unremarkable. Admitting CXR --> Mild pulmonary vascular congestion, findings concerning for L upper/lower lobe pneumonia. Admitting Chest CTA --> "Patchy groundglass opacities in L lung predominantly in L lower lobe with interspersed multifocal centrilobular nodules and suggestion of tree in bud appearance in L lingular segment." S/p IVF, lactate normalized. WBC slightly uptrending. Currently on IV Zosyn + IV Zithromax - continue. Blood cultures pending. Sputum culture pending. Pulmonary toilet with incentive spirometry, flutter valve and scheduled nebs. Continue Mucinex. Probiotic added on. DM Type II: Hold home metformin, SSI regimen while inpatient. CC diet. BSG checks ACHS. Hgb A1c 7.3% this admission. Glycemic pharmacy consulted as BSG was elevated in the 300s. Other Chronic Medical Conditions: HTN/GERD/HLD --> Can continue home medications for these specific conditions. DVT Prophylaxis: SQ Lovenox Code Status: FULL CODE PCP: Guillaume Clark MD Disposition: Admitted in Med/Tele - Possible discharge home on oral antibiotics tomorrow. Will need follow-up chest CT in approximately 6 weeks to document reso lution of pneumonia. Patient seen in collaboration with Dr. Neville. Please see addendum. I spent a total of 45 minutes coordinating, documenting, and providing care for this patient excluding time spent in the performance of separately billed services. This included personally reviewing all current laboratories and imaging studies, medical reconciliation, outpatient chart review and discussion with specialists. This chart was completed in part utilizing Speech Voice Recognition Software. Grammatical errors, random word insertions, pronoun errors, and incomplete sentences are an occasional consequence of this system due to software limitations, ambient noise, and hardware issues. Any formal questions or concerns about the content, text, or information contained within the body of this dictation should be directly addressed to the provider for clarification. Admission and Anticipated Discharge Date Admission Date: October 07, 2024 Supervising Physician Co-Signing Physician Notes Patient seen and examined at bedside. Discussed with above provider. Comfortable; not in distress. Denies fever, chills, chest pain, shortness of breath, abdominal pain or urinary symptoms. He is coughing up some phlegm. Saturating well on room air. Plan to continue antibiotics; follow-up on final culture results I have reviewed the advanced practitioner's documentation, and I agree with, and take responsibility for the plan of care I spent a total of 20 minutes coordinating, documenting, and providing care for this patient excluding time spent in the performance of separately billed services. All of the aforementioned completed while collaborating with the assigned advanced practitioner for a full treatment plan Subjective Patient reports that he tested positive for COVID last month on the and completed a course of Paxlovid however he has been dealing with a persistent cough since then. He was getting a colonoscopy done yesterday at the [facility] in [place] when he was noted to be hypoxic on room air with an O2 saturation in the mid 80s to low 90s. He was subsequently referred to the ED for further evaluation. He is feeling well this morning. He is saturating well on room air. Denies any shortness of breath or chest pain this morning. He does endorse some indigestion and would like his famotidine to be scheduled rather than as needed. He is still coughing intermittently. He occasionally brings up some clear/white sputum production. Sputum culture not yet obtained. No fevers/chills/body aches overnight. Denies any palpations. Review of Systems Review of Systems: At least ten systems reviewed and negative, except as noted in the subjective section. Physical Exam Physical Exam: General: WD/WN, vitals as above, NAD, sitting up in bed, very pleasant, conversing appropriately. A+Ox3, euthymic affect. HEENT: Normocephalic, atraumatic. Conjunctivae normal, anicteric sclerae. External ear and nose normal, oropharynx normal. Respiratory: Normal respiratory effort, on RA, mild L-sided rhonchi, no wheeze/ rales. No accessory muscle use. Cardiovascular: Regular rate, rhythm, no murmur, normal peripheral pulses, no BLE edema. Vessels: No JVD. Abdomen/GI: Normal bowel sounds, soft, nontender, no hepatosplenomegaly. Extremities/Musculoskeletal: No cyanosis or clubbing, extremities motor strength intact, moves all extremities. Neurologic: No focal deficits, CN's II-XI not formally tested but appear grossly intact bilaterally. Skin: No rashes, normal color, warm/dry. Results & Data Results & Data Vital Signs (Past 12 Hours) Vital Signs Temp Pulse Pulse Pulse Resp BP Pulse Ox 10/08/24 11:18 85 18 98 10/08/24 10:57 88 18 128/74 96 10/08/24 07:19 77 18 101/65 96 10/08/24 05:00 79 18 119/69 95 10/08/24 03:17 85 20 126/77 97 10/08/24 01:16 93 H 22 114/77 94 10/08/24 00:15 103 H 10/08/24 00:00 37.0 C 99 H 20 96 10/07/24 23:59 96 H 23 94 O2 Del Method 10/08/24 11:18 Room Air 10/08/24 10:57 Room Air 10/08/24 07:19 Room Air 10/08/24 05:00 Room Air 10/08/24 03:17 Room Air 10/08/24 01:16 Room Air 10/08/24 00:15 10/08/24 00:00 Room Air 10/07/24 23:59 Room Air Laboratory Results Short CBC 10/07/24 10/08/24 Range/Units 15:46 04:19 WBC 14.29 H 15.20 H (4.8-10.8) K/ul Hgb 14.1 11.8 L (14.0-18.0) g/dl Hct 41.3 L 34.4 L (42.0-52.0) % Plt Count 302 223 (130-400) K/uL BMP 10/07/24 10/08/24 15:46 04:19 Sodium 135 L 137 Potassium 4.1 4.0 Chloride 101 103 Carbon Dioxide 23 23 BUN 9 13 Creatinine 0.94 1.07 Glucose 170 H 151 H Calcium 9.1 8.8 Liver Function 10/07/24 Range/Units 15:46 Total Bilirubin 0.8 (0.2-1.0) mg/dl AST 26 (13-39) U/L ALT 22 (7-52) U/L Alkaline Phosphatase 58 (34-104) U/L Albumin 4.2 (3.4-5.0) gm/dl Urine 10/07/24 Range/Units 17:26 Urine Color Yellow Urine Appearance Clear (Clear) Urine pH 6.5 (4.5-7.5) Ur Specific Holder > 1.045 H (1.000-1.030) Urine Protein Negative (Negative) Urine Glucose (UA) Negative (Negative) (2) LLL pneumonia Pneumonia type: due to unspecified organism Qualified Code(s): J18.9 - Pneumonia, unspecified organism
--- NOTE | 2024-10-08 11:47 | Pharmacy Report ---
Pharmacy Glycemic Short Note 2 - Date of Service October 08, 2024 - Glycemic Short BSG Results (Last 24 hours): 10/07/24 10/07/24 10/08/24 15:46 21:44 04:19 Glucose 170 H 151 H POC Glucose 312 H* 10/08/24 07:58 Glucose POC Glucose 146 H OUTPATIENT ANTIDIABETIC REGIMEN: * METFORMIN 500 MG BID ASSESSMENT This is a 69-year-old male with PMH of type 2 diabetes, hypertension, diastolic dysfunction, GERD, history of tobacco use and other medical problems listed below who was sent over from his colonoscopy due to hypoxia and was found to have LLL pneumonia meeting sepsis criteria. reasonably controlled hbA1c (7.3) with metformin only. PLAN FOR INPATIENT GLYCEMIC CONTROL: * Hold outpatient oral diabetes medications * Basal insulin HOLD * Bolus insulin * NovoLog per scale ACHS or Q6hrs while NPO * Goal Range: Low 120 mg/dL - High 160 mg/dL * Correction Factor: 25 mg/dL/unit * Nutritional / Prandial insulin per carb ratio of 1 unit per 8 grams CHO consumed
[2024-10-08] MEDS: AZITHROMYCIN 250 MG TAB PO SCH (20:50)
[2024-10-08] MEDS: ACETAMINOPHEN 325 MG TAB PO PRN (22:11)
[2024-10-09 06:46] LABS: Hematocrit (blood only) 33.7 % (42.0-52.0); Hemoglobin 11.4 g/dl (14.0-18.0); Mean Corpuscular Hemoglobin 31.3 pg (25.0-34.0); Mean Corpuscular Hgb Conc 33.8 g/dL (32.0-36.0); Mean Corpuscular Volume 92.6 fL (80.0-100.0); Platelet Count 202 K/uL (130-400); RDW Coefficient of Variation 13.4 % (11.5-14.5); RDW Standard Deviation 45.7 fL (36.4-46.3); Red Blood Count 3.64 M/uL (4.70-6.10); White Blood Count 10.36 K/ul (4.8-10.8)
[2024-10-09 07:03] LABS: BUN Creatinine Ratio 13.9 (10-20); Calcium 8.7 mg/dl (8.6-10.3); Creatinine Clr Calc Pharmacy 72.4 ml/min; Phosphorus 2.8 mg/dl (2.5-4.9)
--- NOTE | 2024-10-09 08:28 | Hospitalist Progress Note ---
Date of Service October 09, 2024 Assessment & Plan (1) Severe sepsis: (2) LLL pneumonia: Plan Sami Fields is a 69y/o M with PMHx with DM type II, dyslipidemia, HTN, diastolic dysfunction, GERD with esophagitis, diverticulosis, fatty liver, and sensorineural hearing loss of right ear, right ear tinnitus, corneal dystrophy, history of tobacco use [quit in 2014] and history of hepatitis B who presented to the ED for on 10/07/2024 after he was noted to be hypoxic on RA during an outpatient colonoscopy. Patient reports that he tested positive for COVID last month on the and completed a course of Paxlovid however he has been dealing with a persistent cough since then. He was getting a colonoscopy done yesterday at the [facility] in [place] when he was noted to be hypoxic on room air with an O2 saturation in the mid 80s to low 90s. He was subsequently referred to the ED for further evaluation after receiving IV Solu- Medrol and a Duoneb treatment without significant improvement in his oxygen saturation. He was subsequently found to have LLL pneumonia and met severe sepsis criteria (WBC>12k, HR>90, source of infection, lactic acidosis) on admission. He was not hypoxic upon arrival to the ED and has continued to saturate well on room air without any supplemental oxygen support having to be required. Severe Sepsis - RESOLVED, LLL Pneumonia: Met severe sepsis criteria on admission 2/2 WBC>12k, HR>90, source of infection + lactic acidosis. Additional ED work-up including procalcitonin, UA, Biofire and MRSA nasal swab were all unremarkable. Admitting CXR --> Mild pulmonary vascular congestion, findings concerning for L upper/lower lobe pneumonia. Admitting Chest CTA --> "Patchy groundglass opacities in L lung predominantly in L lower lobe with interspersed multifocal centrilobular nodules and suggestion of tree in bud appearance in L lingular segment." S/p IVF resuscitation, lactate normalized. WBC normalized. Currently on IV Zosyn + IV Zithromax - continue. Blood cultures pending. PRN Tylenol. Sputum culture ordered, unable to obtain thus far. Pulmonary toilet with incentive spirometry, flutter valve and scheduled nebs. Continue Mucinex, prob iotic. DM Type II: Hold home metformin, SSI regimen while inpatient. CC diet. BSG checks ACHS. Hgb A1c 7.3% this admission. Glycemic pharmacy onboard. Other Chronic Medical Conditions: HTN/GERD/HLD --> Can continue home medications for these specific conditions. DVT Prophylaxis: SQ Lovenox Code Status: FULL CODE PCP: Guillaume Clark MD Disposition: Admitted in Med/Tele - Likely discharge home on oral antibiotics tomorrow. Will need follow-up chest CT in approximately 6 weeks to document resolution of pneumonia. Patient seen in collaboration with Dr. Stock. Please see addendum. I spent a total of 30 minutes coordinating, documenting, and providing care for this patient excluding time spent in the performance of separately billed services. This included personally reviewing all current laboratories and imaging studies, medical reconciliation, outpatient chart review and discussion with specialists. This chart was completed in part utilizing Speech Voice Recognition Software. Grammatical errors, random word insertions, pronoun errors, and incomplete sentences are an occasional consequence of this system due to software limitations, ambient noise, and hardware issues. Any formal questions or concerns about the content, text, or information contained within the body of this dictation should be directly addressed to the provider for clarification. Admission and Anticipated Discharge Date Admission Date: October 07, 2024 Supervising Physician Co-Signing Physician Notes Patient is seen and examined at bedside Cough, dyspnea much improved Offers no other complaints today On exam patient is obese, no apparent distress, normocephalic atraumatic, EOMI, normal breath sounds, clear to auscultation, S1-S2, no murmur Continue IV antibiotics for pneumonia Follow-up cultures Saturating well on room air Likely discharge tomorrow if continues to improve I personally interviewed and examined at bedside. Patient's care is coordinated with Cathy Quach PA-C. I have reviewed the advanced practitioner's documentation, and I agree with plan of care. Please refer to the documentation above for details of patient's presentation and for discussion of other issues. I spent a total [id number] coordinating, documenting, and providing care for this patient excluding time spent in the performance of separately billed services. Subjective Patient seen and examined at bedside. He reports that he feels well this morning; he has been coughing up quite a bit of clear/whitish sputum. Unable to get a sputum sample so far. He did have a mild low-grade fever overnight and was medicated with oral Tylenol. Patient agreeable with staying another day for IV antibiotic therapy before being transitioned to oral. He denies any SOB/chest pain. His indigestion has improved with scheduled famotidine. No diarrhea or GI upset. Made patient aware that his blood cultures are still pending this morning. Review of Systems Review of Systems: At least ten systems reviewed and negative, except as noted in the subjective section. Physical Exam Physical Exam: General: WD/WN, vitals as above, NAD, sitting up in bed, very pleasant, conversing appropriately. A+Ox3, euthymic affect. HEENT: Normocephalic, atraumatic. Conjunctivae normal, anicteric sclerae. External ear and nose normal, oropharynx normal. Respiratory: Normal respiratory effort, on RA, L-sided rhonchi improved, no wheeze/ rales. No accessory muscle use. Cardiovascular: Regular rate, rhythm, no murmur, normal peripheral pulses, no BLE edema. Vessels: No JVD. Abdomen/GI: Normal bowel sounds, soft, nontender, no hepatosplenomegaly. Extremities/Musculoskeletal: No cyanosis or clubbing, extremities motor strength intact, moves all extremities. Neurologic: No focal deficits, CN's II-XI not formally tested but appear grossly intact bilaterally. Skin: No rashes, normal color, warm/dry. Results & Data Results & Data Vital Signs (Past 12 Hours) Vital Signs Temp Pulse Pulse Pulse Resp BP Pulse Ox 10/09/24 07:34 37.0 C 76 20 114/77 93 10/09/24 07:27 67 15 97 10/09/24 07:12 68 10/09/24 03:01 36.9 C 71 18 124/84 97 10/08/24 23:25 10/08/24 23:24 85 10/08/24 22:42 37.4 C 85 18 110/74 95 O2 Del Method FiO2 10/09/24 07:34 Room Air 10/09/24 07:27 Room Air 21 10/09/24 07:12 10/09/24 03:01 Room Air 10/08/24 23:25 Room Air 10/08/24 23:24 10/08/24 22:42 Room Air Laboratory Results Short CBC 10/09/24 Range/Units 06:04 WBC 10.36 (4.8-10.8) K/ul Hgb 11.4 L (14.0-18.0) g/dl Hct 33.7 L (42.0-52.0) % Plt Count 202 (130-400) K/uL [facility] 10/09/24 06:04 Sodium 139 Potassium 4.0 Chloride 107 Carbon Dioxide 24 BUN 14 Creatinine 1.01 Glucose 123 H Calcium 8.7 (2) LLL pneumonia Pneumonia type: due to unspecified organism Qualified Code(s): J18.9 - Pneumonia, unspecified organism
--- NOTE | 2024-10-09 11:27 | Electrocardiogram Report ---
Test Reason : Blood Pressure : */* mmHG Vent. Rate : 123 BPM Atrial Rate : 123 BPM P-R Int : 144 ms QRS Dur : 62 ms QT Int : 308 ms P-R-T Axes : 19 -26 24 degrees QTcB Int : 440 ms Sinus tachycardia Otherwise normal ECG When compared with ECG of 09-Nov-2022 19:13, Nonspecific T wave abnormality now evident in Anterior leads Confirmed by Jose Alcala ([id number]) on 10/09/2024 11:27:00 AM Referred By: Confirmed By: Jose Alcala
[2024-10-10 06:46] LABS: Hematocrit (blood only) 34.6 % (42.0-52.0); Hemoglobin 11.9 g/dl (14.0-18.0); Mean Corpuscular Hemoglobin 31.6 pg (25.0-34.0); Mean Corpuscular Hgb Conc 34.4 g/dL (32.0-36.0); Platelet Count 203 K/uL (130-400); RDW Coefficient of Variation 13.2 % (11.5-14.5); RDW Standard Deviation 44.2 fL (36.4-46.3); Red Blood Count 3.76 M/uL (4.70-6.10)
[2024-10-10 07:06] LABS: BUN Creatinine Ratio 12.5 (10-20); Creatinine Clr Calc Pharmacy 70.3 ml/min; Magnesium 1.9 mg/dl (1.7-2.4); Phosphorus 3.2 mg/dl (2.5-4.9)
[2024-10-10 07:47] VITALS: PULSE 84; RESP 18; TEMP 98.2
--- NOTE | 2024-10-10 08:57 | Discharge Summary ---
Discharge Summary Date of Service October 10, 2024 Principal Dx & Hospital Course #1 = Principal Diagnosis (1) Severe sepsis: (2) LLL pneumonia: Plan Sami Fields is a 69y/o M with PMHx with DM type II, dyslipidemia, HTN, barr tolic dysfunction, GERD with esophagitis, diverticulosis, fatty liver, and sensorineural hearing loss of right ear, right ear tinnitus, corneal dystrophy, history of tobacco use [quit in 2014] and history of hepatitis B who presented to the ED for on 10/07/2024 after he was noted to be hypoxic on RA during an outpatient colonoscopy. Patient reports that he tested positive for COVID last month on the and completed a course of Paxlovid however he has been dealing with a persistent cough since then. He was getting a colonoscopy done yesterday at the [facility] in [place] when he was noted to be hypoxic on room air with an O2 saturation in the mid 80s to low 90s. He was subsequently referred to the ED for further evaluation after receiving IV Solu- Medrol and a Duoneb treatment without significant improvement in his oxygen saturation. He was subsequently found to have LLL pneumonia and met severe sepsis criteria (WBC>12k, HR>90, source of infection, lactic acidosis) on admission. He was not hypoxic upon arrival to the ED and has continued to saturate well on room air without any supplemental oxygen support having to be required. Severe Sepsis - RESOLVED, LLL Pneumonia: Met severe sepsis criteria on admission 2/2 WBC>12k, HR>90, source of infection + lactic acidosis. Additional ED work-up including procalcitonin, UA, Biofire and MRSA nasal swab were all unremarkable. His admitting CXR revealed mild pulmonary vascular congestion and findings concerning for left upper/lower lobe pneumonia. Admitting chest CTA revealed patchy groundglass opacities in left lung predominantly in the left lower lobe. He was adequately resuscitated with IVF and his lactate normalized in addition to his WBC. He was treated with IV Zosyn and oral Zithromax. He is being transitioned to oral Augmentin to complete a full 10-day course of antibiotic therapy. He also has another day of oral Zithromax to complete. Patient encouraged to take a daily probiotic while on antibiotic therapy. Also he was instructed to continue with Mucinex and to use his albuterol inhaler at home as needed. His preliminary blood cultures show no growth to date. No sputum culture was able to be obtained. Encouraged patient to continue with incentive spirometry, flutter valve. He has close PCP follow-up already scheduled and will need a follow-up chest CT in approximately 6 weeks to document resolution of the pneumonia. DM Type II: Can resume home metformin upon discharge. His hemoglobin A1c was 7.3% this admission. Other Chronic Medical Conditions: HTN/GERD/HLD --> Can continue home medications for these specific conditions. PCP: Guillaume Clark MD Disposition: Patient is being discharged home in good condition on oral antibiotics with close PCP follow-up. Patient seen in collaboration with Dr. Stock. Please see addendum. I spent a total of 50 minutes coordinating, documenting, and providing care for this patient excluding time spent in the performance of separately billed services. This included personally reviewing all current laboratories and imaging studies, medical reconciliation, outpatient chart review and discussion with specialists. This chart was completed in part utilizing Speech Voice Recognition Software. Grammatical errors, random word insertions, pronoun errors, and incomplete sentences are an occasional consequence of this system due to software limitations, ambient noise, and hardware issues. Any formal questions or concerns about the content, text, or information contained within the body of this dictation should be directly addressed to the provider for clarification. Notes For Next Care Provider Sami will need a follow-up chest CT in approximately 6 weeks to document resolution of his pneumonia. Medication Changes From Visit There were no medication changes made during this admission, he can continue taking all of his home medications as previously prescribed. Admission HPI Per Admitting Provider This is a 69-year-old male with PMH of type 2 diabetes, hypertension, diastolic dysfunction, GERD, history of tobacco use and other medical problems listed below who was sent over from his colonoscopy due to hypoxia. Patient tested positive for COVID Sep 17 and completed Paxlovid course and was feeling better until today when he felt congested and was coughing more. No F/C, lightheadedness, CP today. Did receive 4mg decadron and albuterol nebs from anesthesia due to hypoxia which has since resolved. Former smoker but quit in 2014. Was undergoing colonoscopy today in follow up of mild diverticulitis episode over the summer, h/o polyps. Admission Exam Per Admitting Provider General Appearance: WD/WN, vitals as above, NAD, sitting up in bed, conversing easily, obese Head: normocephalic, atraumatic Eyes: normal inspection, PERRL, conjunctivae normal, anicteric sclerae ENT: external ear and nose normal, oropharynx normal Neck: normal visual inspection, trachea midline, no thyromegaly Respiratory: normal respiratory effort, Left base with rhonchi, expiratory wheezing, crackles. R base clear. No accessory muscle use Cardiovascular: tachycardic rate, regular rhythm, normal peripheral pulses, no BLE edema. Vessels: no JVD Chest: normal inspection of chest Abdomen/GI: normal bowel sounds, soft, nontender, no hepatosplenomegaly Extremities/Musculoskeletal: no cyanosis or clubbing, extremities motor strength 5/5 Neurologic: PERRL, EOMI, accommodation nl, no face palsy, no dysarthria, CN's II-XI intact bilaterally and moves all extremities Psychiatric: A+Ox3, euthymic affect Skin: no rashes, normal color, warm/dry Discharge Exam General: WD/WN, NAD, sitting up in chair at bedside, very pleasant, conversing appropriately. A+Ox3, euthymic affect. HEENT: Normocephalic, atraumatic. Conjunctivae normal, anicteric sclerae. External ear and nose normal, oropharynx normal. Respiratory: Normal respiratory effort, saturating well on RA, mild L-sided wheezing, no wheeze/ rales. No accessory muscle use. Cardiovascular: Regular rate, rhythm, no murmur, normal peripheral pulses, no BLE edema. Vessels: No JVD. Abdomen/GI: Normal bowel sounds, soft, nontender, no hepatosplenomegaly. Extremities/Musculoskeletal: No cyanosis or clubbing, extremities motor strength intact, moves all extremities. Neurologic: No focal deficits, CN's II-XI not formally tested but appear grossly intact bilaterally. Skin: No rashes, normal color, warm/dry. Updated Medication List Medication Instructions Recorded Confirmed Type aspirin 81 mg capsule 81 mg PO DAILY 10/07/24 10/07/24 History famotidine 20 mg tablet 20 mg PO HS PRN Heartburn 10/07/24 10/07/24 History geriatric multivitamin-min 1 tab PO DAILY 10/07/24 10/07/24 History metformin 500 mg tablet,extended 500 mg PO BID 10/07/24 10/07/24 History release 24 hr metoprolol succinate 50 mg 50 mg PO QAM 10/07/24 10/07/24 History tablet,extended release 24 hr rosuvastatin 10 mg tablet 10 mg PO DAILY 10/07/24 10/07/24 History amoxicillin 875 mg-potassium 1 tab PO BID 7 days #14 tabs 10/10/24 Rx clavulanate 125 mg tablet azithromycin 250 mg tablet 500 mg (2 x 250 mg) PO Q24H #1 tab 10/10/24 Rx Hospital Stay Data Consultations 10/07/24 18:10 ED Decision to Admit Stat Diagnostic Imagining Performed 10/07/24 16:31 CT for pulmonary embolism PE [CT angio chest PE protocol] Stat Discharge Instructions Given to Patient (Per Discharging Provider) Mr. Fields, You were admitted to the hospital with left lower lobe pneumonia and treated with IV antibiotics. Thankfully your preliminary blood cultures have come back negative. You are being discharged on the following antibiotics: 7-day course of oral AUGMENTIN and 1-day course of oral AZITHROMYCIN. You will begin taking both antibiotics tomorrow morning. You have 7 days worth of the Augmentin, which is taken both in the morning and in the evening. You will take another days worth of azithromycin and then that antibiotic will be finished. Please take both antibiotics as prescribed and in their entirety! Please make sure you obtain probiotics from your pharmacy as we had discussed. It is recommended that you take a probiotic daily while on antibiotic therapy! You can continue to use Mucinex as needed to help with congestion. Please continue to use your incentive spirometer and flutter valve at least 4 times a day as we had discussed. Also make sure to use your albuterol inhaler as needed for any shortness of breath or wheezing. You will need a follow-up chest CT in approximately 6 weeks to ensure resolution of your pneumonia, this can be arranged at your follow-up appointment with Dr. Clark as outlined below. UPCOMING APPOINTMENT Date & Time: , 10/17/2024 @ 10:40 AM Provider: Guillaume Clark MD Department: [facility] Seek medical attention if you have: * temperature above 101F * chest pain or trouble breathing * abdominal pain, nausea, vomiting * diarrhea, dark stools or bloody stools * any unanswered questions or concerns Call 911 if symptoms are severe. Please take good care of yourself. It has been a pleasure taking care of you! If you have any questions regarding your recent hospitalization please contact [facility] and request Jessica Ramirez @ [phone]. Total Time Total Time Spent Total Time Spent (In Minutes): 50 Supervising Physician Co-Signing Physician Notes Patient is seen and examined at bedside on day of discharge Cough continues to improve No new complaints today On exam patient is obese, no apparent distress, normocephalic atraumatic, EOMI, normal breath sounds, clear to auscultation, S1-S2, no murmur Continue IV antibiotics for pneumonia>> transition to p.o. antibiotics on discharge Blood cultures remain negative to date Saturating well on room air Advised to follow-up with PCP on discharge and follow-up culture report as outpatient I personally interviewed and examined at bedside. Patient's care is coordinated with Cathy Quach PA-C. I have reviewed the advanced practitioner's documentation, and I agree with plan of care. Please refer to the documentation above for details of patient's presentation and for discussion of other issues. I spent a total [id number] coordinating, documenting, and providing care for this patient excluding time spent in the performance of separately billed services.
[2024-10-10 11:38] VITALS: O2SAT 95
[2024-10-10 12:57] VITALS: BP 128/74
== END 2024-10-10 14:05 | disposition home or self-care (01) | DRG 871 ==
LOC: ED 15:13 → EDINP 18:53 → SUATTDRO 18:53 → 2N 21:20